=== PATIENT | female | born 1970 | race Caucasian/White ===

== ENCOUNTER 2024-11-20 16:16 | Emergency (ER) | payer BC, OTHER | END 2024-11-20 17:26 | disposition home or self-care (01) | LOC: JD.ED 16:16 | DX: L08.9 Local infection of the skin and subcutaneous tissue, unspecified (principal); M79.89 Other specified soft tissue disorders; Z88.0 Allergy status to penicillin | CPT/HCPCS: 93971; 99283; A9270 ==